=== PATIENT | female | born 1955 | race Caucasian/White ===

== ENCOUNTER 2016-09-16 15:32 | Emergency (ER) | payer BC ==
[2015-06-06 15:10] VITALS: BMI 29.0
[~2016-09-16 15:32] MED LIST: AMBIEN10 MG PO; ATIVAN0.5 MG PO; BYDUREON SQ; COUMADIN5 MG PO; COUMADIN6 MG PO; GLIPIZIDE10 MG PO; METOPROLOL TART50 MG PO; PRINIVIL20 MG PO
[2016-09-16 16:25] LABS: BASOPHILS 0.6 % (0.0-2.0); EOSINOPHILS 2.2 % (0-7); HEMATOCRIT 40.7 % (36.0-48.0); HEMOGLOBIN 14.3 g/dL (12-16); IMMATURE GRANULOCYTES 0.4 % (0-5); LYMPHOCYTES 39.9 % (15-50); MCH 31.2 pg (26.0-34.0); MCHC 35.1 g/dL (31.0-37.0); MCV 88.7 fL (80.0-100.0); MEAN PLATELET VOLUME 9.7 fL (7.4-10.4); MONOCYTES 7.8 % (2-11); NEUTROPHILS 49.1 % (40-80); PLATELET COUNT 172 10x3/uL (130-400); RBC 4.59 10x6/uL (4.00-5.40); RDW 11.9 % (11.5-14.5); WBC 5.4 10x3/uL (4.8-10.8)
[2016-09-16 17:00] LABS: ALBUMIN 3.4 g/dL (3.4-5.0); ALKALINE PHOSPHATASE 76 U/L (46-116); ALT (SGPT) 40 U/L (10-68); BILIRUBIN - TOTAL 0.35 mg/dL (0.2-1.3); CALCIUM 8.3 mg/dL (8.5-10.1); CARBON DIOXIDE 21.2 mmol/L (21.0-32.0); CHLORIDE - SERUM 105 mmol/L (98-107); CREATINE KINASE 65 UL (21-215); CREATININE - SERUM 0.9 mg/dL (0.6-1.3); POTASSIUM - SERUM 3.9 mmol/L (3.5-5.1); PROTEIN - SERUM 6.2 g/dL (6.4-8.2); SODIUM 141 mmol/L (136-145); T4 THYROXIN - FREE 1.03 ng/dL (0.76-1.46); UREA NITROGEN 18 mg/dL (7-18); eGFR NON AFRICAN AMERICAN 68 mL/min (90-120)
[2016-09-16 17:06] LABS: CALC OSMOLALITY 300 mosm/kg (275-300); TROPONIN-I < 0.017 ng/mL (0.000-0.060)
[2016-09-16 17:08] LABS: GLUCOSE 424 mg/dL (74-106)
== END 2016-09-16 19:39 | disposition home or self-care (01) ==
LOC: D.ER 15:32
PROVIDERS: Emergency Medicine
DX: I47.1 Supraventricular tachycardia (principal); R73.9 Hyperglycemia, unspecified

== ENCOUNTER → 2016-10-17 16:23 | Outpatient (CLI) | payer BC ==
[2015-06-06 15:10] VITALS: BMI 29.0
== END | disposition home or self-care (01) ==
LOC: D.MAMMO 09-18 15:00
DX: Z12.31 Encounter for screening mammogram for malignant neoplasm of breast (principal)

== ENCOUNTER 2017-06-15 07:29 | Emergency (ER) | payer BC ==
[2015-06-06 15:10] VITALS: BMI 29.0
[2017-06-15 08:19] LABS: BASOPHILS 0.7 % (0-2); EOSINOPHILS 3.2 % (0-7); HEMOGLOBIN 14.4 g/dL (12-16); IMMATURE GRANULOCYTES 0.2 % (0-5); LYMPHOCYTES 36.8 % (15-50); MCH 30.3 pg (26.0-34.0); MCHC 34.3 g/dL (31.0-37.0); MCV 88.2 fL (80.0-100.0); MEAN PLATELET VOLUME 9.8 fL (7.4-10.4); MONOCYTES 6.2 % (2-11); NEUTROPHILS 52.9 % (40-80); PLATELET COUNT 192 10x3/uL (130-400); RBC 4.76 10x6/uL (4.00-5.40); RDW 11.9 % (11.5-14.5); WBC 4.4 10x3/uL (4.8-10.8)
[2017-06-15 08:31] LABS: ALBUMIN 3.4 g/dL (3.4-5.0); ALKALINE PHOSPHATASE 57 U/L (46-116); ALT (SGPT) 37 U/L (10-68); CALC OSMOLALITY 294 mosm/kg (275-300); CALCIUM 8.7 mg/dL (8.5-10.1); CARBON DIOXIDE 21.6 mmol/L (21.0-32.0); CHLORIDE - SERUM 107 mmol/L (98-107); CREATININE - SERUM 0.9 mg/dL (0.6-1.3); POTASSIUM - SERUM 3.4 mmol/L (3.5-5.1); PROTEIN - SERUM 6.5 g/dL (6.4-8.2); SODIUM 142 mmol/L (136-145); UREA NITROGEN 13 mg/dL (7-18); eGFR NON AFRICAN AMERICAN 68 mL/min (90-120)
[2017-06-15 08:33] LABS: TROPONIN-I < 0.017 ng/mL (0.000-0.060)
[2017-06-15 08:39] LABS: GLUCOSE 321 mg/dL (74-106)
== END 2017-06-15 09:10 | disposition home or self-care (01) ==
LOC: D.ER 07:29
PROVIDERS: Emergency Medicine
DX: I47.1 Supraventricular tachycardia (principal)

== ENCOUNTER 2017-11-28 12:44 | Emergency (ER) | payer BC ==
[2015-06-06 15:10] VITALS: BMI 29.0
[2017-11-28 13:55] LABS: APTT 52.7 SECONDS (22.8-39.4); INR 3.35 (0.85-1.17); PROTIME 33.2 SECONDS (11.6-15.0)
== END 2017-11-28 14:34 | disposition home or self-care (01) ==
LOC: D.ER 12:44
PROVIDERS: Emergency Medicine
DX: S80.02XA Contusion of left knee, initial encounter (principal); W19.XXXA Unspecified fall, initial encounter; Y93.89 Activity, other specified; Y92.89 Other specified places as the place of occurrence of the external cause

== ENCOUNTER → 2017-12-09 10:09 | Outpatient (CLI) | payer BC ==
[2015-06-06 15:10] VITALS: BMI 29.0
== END | disposition home or self-care (01) ==
LOC: D.MRI 09:30
DX: M25.562 Pain in left knee (principal)

== ENCOUNTER → 2017-12-29 13:29 | Outpatient (CLI) | payer BC ==
[2015-06-06 15:10] VITALS: BMI 29.0
== END | disposition home or self-care (01) ==
LOC: D.US 13:29
DX: M79.605 Pain in left leg (principal); R22.42 Localized swelling, mass and lump, left lower limb

== ENCOUNTER 2018-09-19 02:37 | Emergency (ER) | payer BC ==
[~2018-09-19] VITALS: Ht 170.2 cm; Wt 81.6 kg
[2018-09-19 02:43] VITALS: Ht 170.2 cm; Wt 81.6 kg
[2018-09-19] MEDS ORDERED: TRULICITY1.5 MG/0.5 SC (02:45)
[2018-09-19 03:22] LABS: BASOPHILS 0.6 % (0-2); HEMATOCRIT 41.6 % (36.0-48.0); HEMOGLOBIN 14.4 g/dL (12-16); IMMATURE GRANULOCYTES 0.2 % (0-5); LYMPHOCYTES 48.3 % (15-50); MCH 29.9 pg (26.0-34.0); MCHC 34.6 g/dL (31.0-37.0); MCV 86.5 fL (80.0-100.0); MEAN PLATELET VOLUME 9.8 fL (7.4-10.4); MONOCYTES 6.9 % (2-11); PLATELET COUNT 184 10x3/uL (130-400); RBC 4.81 10x6/uL (4.00-5.40); RDW 12.2 % (11.5-14.5); WBC 4.9 10x3/uL (4.8-10.8)
[2018-09-19 03:30] LABS: KETONE - SERUM NEGATIVE (NEGATIVE)
[2018-09-19 03:40] LABS: ALBUMIN 3.8 g/dL (3.4-5.0); ALKALINE PHOSPHATASE 64 U/L (46-116); ALT (SGPT) 30 U/L (10-68); CALC OSMOLALITY 295 mosm/kg (275-300); CALCIUM 9.3 mg/dL (8.5-10.1); CARBON DIOXIDE 25.4 mmol/L (21.0-32.0); CHLORIDE - SERUM 105 mmol/L (98-107); CREATININE - SERUM 0.8 mg/dL (0.6-1.3); GLUCOSE 315 mg/dL (74-106); PROTEIN - SERUM 7.3 g/dL (6.4-8.2); SODIUM 141 mmol/L (136-145); UREA NITROGEN 20 mg/dL (7-18); eGFR NON AFRICAN AMERICAN 77 mL/min (90-120)
[2018-09-19 03:43] LABS: CREATINE KINASE 73 UL (21-215)
[2018-09-19 03:50] LABS: TROPONIN-I < 0.017 ng/mL (0.000-0.060)
[2018-09-19] MEDS ORDERED: ANTIVERT12.5 MG PO (04:32)
[2018-09-19] MEDS ORDERED: ZOFRAN ODT4 MG/UDTAB PO (04:33)
[2018-09-19 05:06] VITALS: BP 126/68
== END 2018-09-19 05:07 | disposition home or self-care (01) ==
LOC: D.ER 02:37
PROVIDERS: Emergency Medicine
DX: R42 Dizziness and giddiness (principal); R00.2 Palpitations

== ENCOUNTER → 2018-10-05 06:33 | Outpatient (CLI) | payer BC ==
[2018-09-19 02:43] VITALS: BMI 29.0
[~2018-10-05 06:33] MED LIST changes: +ANTIVERT12.5 MG PO; +TRULICITY1.5 MG/0.5 SC; +ZOFRAN ODT4 MG/UDTAB PO
[2018-10-05 07:19] LABS: BASOPHILS 0.8 % (0-2); EOSINOPHILS 2.5 % (0-7); HEMATOCRIT 41.4 % (36.0-48.0); HEMOGLOBIN 14.4 g/dL (12-16); IMMATURE GRANULOCYTES 0.2 % (0-5); LYMPHOCYTES 47.3 % (15-50); MCH 30.1 pg (26.0-34.0); MCHC 34.8 g/dL (31.0-37.0); MCV 86.4 fL (80.0-100.0); MEAN PLATELET VOLUME 9.9 fL (7.4-10.4); MONOCYTES 5.9 % (2-11); NEUTROPHILS 43.3 % (40-80); PLATELET COUNT 210 10x3/uL (130-400); RBC 4.79 10x6/uL (4.00-5.40); WBC 5.1 10x3/uL (4.8-10.8)
[2018-10-05 07:53] LABS: INR 1.65 (0.85-1.17); PROTIME 18.9 SECONDS (11.6-15.0)
[2018-10-05 08:11] LABS: ALBUMIN 3.7 g/dL (3.4-5.0); ALKALINE PHOSPHATASE 55 U/L (46-116); ALT (SGPT) 30 U/L (10-68); BILIRUBIN - TOTAL 0.47 mg/dL (0.2-1.3); CALCIUM 9.1 mg/dL (8.5-10.1); CARBON DIOXIDE 23.5 mmol/L (21.0-32.0); CHOL - HDL RATIO 3.9 ratio (2.3-4.1); CHOLESTEROL, TOTAL 143 mg/dL (0-200); CREATININE - SERUM 0.8 mg/dL (0.6-1.3); HDL CHOLESTEROL 37 mg/dL (32-96); LDL CHOLESTEROL 86 mg/dL (0-100); LDL-HDL RATIO 2.3 ratio (1.5-3.5); PROTEIN - SERUM 6.9 g/dL (6.4-8.2); TRIGLYCERIDE 103 mg/dL (30-200); UREA NITROGEN 19 mg/dL (7-18); eGFR NON AFRICAN AMERICAN 77 mL/min (90-120)
[2018-10-05 08:20] LABS: GLUCOSE 267 mg/dL (74-106)
[2018-10-05 08:41] LABS: CALC OSMOLALITY 284 mosm/kg (275-300); CHLORIDE - SERUM 104 mmol/L (98-107); POTASSIUM - SERUM 3.8 mmol/L (3.5-5.1); SODIUM 137 mmol/L (136-145)
[2018-10-06 10:20] LABS: CREATININE - URINE 62.4 mg/dL (Not Estab.); MICROALBUMIN - URINE 4.7 ug/mL (Not Estab.)
[2018-10-13 14:22] LABS: MICROALB/CREAT RATIO 7.5 (0.0-30.0)
== END | disposition home or self-care (01) ==
LOC: D.LABREF 06:33
PROVIDERS: ATTEND Emergency Medicine
DX: E11.65 Type 2 diabetes mellitus with hyperglycemia (principal); I10 Essential (primary) hypertension; E78.2 Mixed hyperlipidemia; D68.51 Activated protein C resistance

== ENCOUNTER → 2018-10-22 09:59 | Outpatient (CLI) | payer BC | END | disposition home or self-care (01) | LOC: D.MAMMO 09:59 | DX: Z12.31 Encounter for screening mammogram for malignant neoplasm of breast (principal) ==

== ENCOUNTER → 2018-11-02 15:07 | Outpatient (CLI) | payer BC ==
[2018-09-19 02:43] VITALS: BMI 29.0
[2018-11-02 15:44] LABS: INR 1.22 (0.85-1.17); PROTIME 14.9 SECONDS (11.6-15.0)
== END | disposition home or self-care (01) ==
LOC: D.LABREF 15:07
PROVIDERS: ATTEND Emergency Medicine
DX: E11.9 Type 2 diabetes mellitus without complications (principal)

== ENCOUNTER → 2018-12-17 08:43 | Outpatient (CLI) | payer BC ==
[2018-09-19 02:43] VITALS: BMI 29.0
[2018-12-17 10:13] LABS: INR 1.1 (0.85-1.17); PROTIME 13.7 SECONDS (11.6-15.0)
== END | disposition home or self-care (01) ==
LOC: D.LABREF 08:43
PROVIDERS: ATTEND Emergency Medicine
DX: D68.51 Activated protein C resistance (principal)

== ENCOUNTER → 2019-01-19 08:05 | Outpatient (CLI) | payer BC ==
[2018-09-19 02:43] VITALS: BMI 29.0
[2019-01-19 09:08] LABS: INR 1.01 (0.85-1.17); PROTIME 12.8 SECONDS (11.6-15.0)
== END | disposition home or self-care (01) ==
LOC: D.LABREF 08:05
PROVIDERS: ATTEND Emergency Medicine
DX: E11.65 Type 2 diabetes mellitus with hyperglycemia (principal)

== ENCOUNTER 2019-07-16 13:02 | Inpatient (IN) | payer BC ==
[~2019-07-16] VITALS: Ht 170.2 cm; Wt 86.3 kg
[2019-07-16 14:54] LABS: BASOPHILS 0.5 % (0-2); EOSINOPHILS 2.1 % (0-7); HEMATOCRIT 41.3 % (36.0-48.0); HEMOGLOBIN 14.5 g/dL (12-16); IMMATURE GRANULOCYTES 0.2 % (0-5); LYMPHOCYTES 31.8 % (15-50); MCH 29.7 pg (26.0-34.0); MCHC 35.1 g/dL (31.0-37.0); MCV 84.6 fL (80.0-100.0); MEAN PLATELET VOLUME 9.7 fL (7.4-10.4); MONOCYTES 6.4 % (2-11); PLATELET COUNT 187 10x3/uL (130-400); RBC 4.88 10x6/uL (4.00-5.40); RDW 11.9 % (11.5-14.5); WBC 6.1 10x3/uL (4.8-10.8)
[2019-07-16 15:04] LABS: INR 0.96 (0.85-1.17); PROTIME 12.8 SECONDS (11.6-15.0)
[2019-07-16 15:05] LABS: CALC OSMOLALITY 289 mosm/kg (275-300); CALCIUM 8.7 mg/dL (8.5-10.1); CARBON DIOXIDE 26.5 mmol/L (21.0-32.0); CHLORIDE - SERUM 100 mmol/L (98-107); CREATININE - SERUM 0.7 mg/dL (0.6-1.3); POTASSIUM - SERUM 3.9 mmol/L (3.5-5.1); SODIUM 136 mmol/L (136-145); UREA NITROGEN 19 mg/dL (7-18); eGFR NON AFRICAN AMERICAN 90 mL/min (90-120)
[2019-07-16 15:07] LABS: GLUCOSE 381 mg/dL (74-106)
[2019-07-16 15:12] LABS: ALBUMIN 3.4 g/dL (3.4-5.0); ALKALINE PHOSPHATASE 71 U/L (46-116); ALT (SGPT) 30 U/L (10-68); BILIRUBIN - TOTAL 0.31 mg/dL (0.2-1.3); MAGNESIUM - SERUM 1.8 mg/dL (1.8-2.4); PROTEIN - SERUM 6.4 g/dL (6.4-8.2)
--- NOTE | 2019-07-16 16:00 | NUR ---
ADMITTED TO ROOM ALERT AND ORIENTIATED, REPORTS FELL AT HOME YESTERDAY AND HURT BACK, SEE ASSESSMENT, ORIENTIATED TO ROOM, CALL LIGHT IN REACH
[2019-07-16 20:00] VITALS: BP 134/59
[2019-07-17] VITALS (7 sets, daily range): BP systolic 100–156; BP diastolic 55–68; Ht 170.2 cm; Wt 86.3 kg
[2019-07-17 05:39] LABS: BASOPHILS 0.1 % (0-2); EOSINOPHILS 0.1 % (0-7); HEMATOCRIT 43.4 % (36.0-48.0); IMMATURE GRANULOCYTES 0.3 % (0-5); MCH 29.6 pg (26.0-34.0); MCHC 34.6 g/dL (31.0-37.0); MCV 85.8 fL (80.0-100.0); MEAN PLATELET VOLUME 9.7 fL (7.4-10.4); MONOCYTES 1.5 % (2-11); PLATELET COUNT 201 10x3/uL (130-400); RBC 5.06 10x6/uL (4.00-5.40); RDW 12.1 % (11.5-14.5); WBC 7.3 10x3/uL (4.8-10.8)
[2019-07-17 06:08] LABS: CALCIUM 9.2 mg/dL (8.5-10.1); CARBON DIOXIDE 25.6 mmol/L (21.0-32.0); CHLORIDE - SERUM 103 mmol/L (98-107); CREATININE - SERUM 0.8 mg/dL (0.6-1.3); SODIUM 138 mmol/L (136-145); UREA NITROGEN 21 mg/dL (7-18); eGFR NON AFRICAN AMERICAN 77 mL/min (90-120)
[2019-07-17 06:09] LABS: CALC OSMOLALITY 290 mosm/kg (275-300); GLUCOSE 320 mg/dL (74-106); POTASSIUM - SERUM 4.5 mmol/L (3.5-5.1)
--- NOTE | 2019-07-17 08:15 | NUR ---
PT LYING SEMI FOWLERS IN BED. RR EVEN AND UNLABORED. PT HAS A L WRIST PIV THAT IS SL. BED LOCKED AND IN LOWEST POSITION, CALL LIGHT WITIN REACH. WILL CTM
--- NOTE | 2019-07-17 14:26 | NUR ---
I have reviewed this patient and I concur with the Shift Assessment completed by the Licensed Practical Nurse today this shift.
[2019-07-17 16:24] LABS: ERYTHROCYTE SEDIMENTATION RATE 5 mm/hr (0-30)
--- NOTE | 2019-07-17 20:00 | NUR ---
ALERT RESTING QUITELY IN BED, REPORTS PAIN WITH MOVEMENT, DENIES NEEDS AT THIS TIME, SEE SHIFT ASSESSNMENT, CALL LIGHT IN REACH
[2019-07-18] VITALS: BP 152/65
[2019-07-18 04:00] VITALS: BP 116/45
[2019-07-18 05:22] LABS: BASOPHILS 0.1 % (0-2); EOSINOPHILS 0 % (0-7); HEMATOCRIT 42.7 % (36.0-48.0); IMMATURE GRANULOCYTES 0.6 % (0-5); LYMPHOCYTES 10.1 % (15-50); MCH 30.2 pg (26.0-34.0); MCHC 35.1 g/dL (31.0-37.0); MCV 86.1 fL (80.0-100.0); MEAN PLATELET VOLUME 10.1 fL (7.4-10.4); MONOCYTES 3.9 % (2-11); NEUTROPHILS 85.3 % (40-80); PLATELET COUNT 219 10x3/uL (130-400); RBC 4.96 10x6/uL (4.00-5.40); RDW 12.1 % (11.5-14.5)
[2019-07-18 05:31] LABS: WBC 12.1 10x3/uL (4.8-10.8)
[2019-07-18 05:39] LABS: CALC OSMOLALITY 291 mosm/kg (275-300); CALCIUM 9.5 mg/dL (8.5-10.1); CARBON DIOXIDE 25.9 mmol/L (21.0-32.0); CHLORIDE - SERUM 102 mmol/L (98-107); CREATININE - SERUM 0.6 mg/dL (0.6-1.3); GLUCOSE 310 mg/dL (74-106); POTASSIUM - SERUM 4.1 mmol/L (3.5-5.1); SODIUM 138 mmol/L (136-145); UREA NITROGEN 23 mg/dL (7-18); eGFR NON AFRICAN AMERICAN > 90 mL/min (90-120)
--- NOTE | 2019-07-18 07:52 | NUR ---
LEFT UNIT FOR MRI VIA WHEELCHAIR. PAIN MEDS PRIOR TO LEAVING UNIT
[2019-07-18 07:58] VITALS: BP 151/71
--- NOTE | 2019-07-18 08:00 | NUR ---
ASSESSMENT PER FLOW SHEET. PT IS WITHOUT NEEDS.CALL LIGHT IN REACH.
--- NOTE | 2019-07-18 09:18 | NUR ---
BACK FROM MRI.
--- NOTE | 2019-07-18 14:00 | MORECARE ---
CASE MANAGEMENT DISCHARGE SUMMARY PATIENT: VENU VILLATORO UNIT: [id number] ADM DATE: 07/16/19 AGE: 63 : 59 SEX: F ROOM/BED: D.[facility] AUTHOR: TIFFANY PAUL PHYSICIAN: REFERRING PHYSICIAN: MISSY HECK MD DATE OF SERVICE: 07/18/19 Discharge Plan Patient Name: VENU VILLATORO Facility: [facility]:[place] : 1955 Planned Disposition: Home Anticipated Discharge Date: Discharge Date: Expected LOS: Initial Reviewer: [email or web address] Initial Review Date: 07/18/2019 Generated: 07/18/19 2:59 pm Patient Name: VENU VILLATORO Page [phone] at 1400 All edits/amendments must be made on the electronic document DICTATION DATE: 07/18/19 1359 APNS: DWIGHT 07/18/19 135Suresh RPT#: [id number] DC DATE: STATUS: ADM IN [facility] [address] [place] [address] END OF REPORT
--- NOTE | 2019-07-18 14:06 | MORECARE ---
CASE MANAGEMENT DISCHARGE SUMMARY PATIENT: VENU VILLATORO UNIT: [id number] ADM DATE: 07/18/19 AGE: 63 : 59 SEX: F ROOM/BED: D.2231 AUTHOR: HUMBERTO,DOC PHYSICIAN: REFERRING PHYSICIAN: MISSY HECK MD DATE OF SERVICE: 07/18/19 Discharge Plan Patient Name: VENU VILLATORO Facility: [facility]:[place] : 1955 Planned Disposition: Home Anticipated Discharge Date: Discharge Date: Expected LOS: Initial Reviewer: [email or web address] Initial Review Date: 07/18/2019 Generated: 07/18/19 3:06 pm DCP- Discharge Planning Updated by [email or web address]: Carmelina Hutchison on 07/18/19 1:[address] Patient Name: VENU VILLATORO Admission Status: ER Accout number: [id number] Admission Date: 07-16-2019 : 1955 Admission Diagnosis: Attending: MISSY HECK Current LOS: 2 Anticipated DC Date: Planned Disposition: Home Primary Insurance: B[employer]NLIFE Discharge Planning Comments: CM met with patient to complete initial dc planning assessment. CM educated patient on the CM role and verbal consent given by patient to complete assessment. Patient lives at home with her adult son. States her son works at night, so usually she is alone. At discharge patient plans to return and feels this is a safe discharge. CM discussed availability of home health, rehab services, and medical equipment. Patient denied known discharge needs at this time. States her home is too small for a walker, so she declines a walker. CM will continue to follow and will assist as needed with dc plans/needs. Malted Milk Supervisor: Carmelina Hutchison DCPIA - Discharge Planning Initial Assessment Updated by [email or web address]: Carmelina Hutchison on 07/18/19 1:59 pm * Is the patient Alert and Oriented? Yes * How many steps to enter\exit or inside your home? 6/0 * PCP Dr. Spencer * Pharmacy [facility] * Preadmission Environment Home with Family * ADLs Independent * Equipment None * List name and contact numbers for known caregivers / representatives who currently or will assist patient after discharge: Vin Byrd SO - [phone] * Verbal permission to speak to the caregivers and representatives has been obtained from the patient. Yes * Community resources currently utilized None * Additional services required to return to the preadmission environment? No * Can the patient safely return to the preadmission environment? Yes * Has this patient been hospitalized within the prior 30 days at any hospital? No Last DP export: 07/18/19 1:00 p Patient Name: VENU VILLATORO Page [phone] at 1406 All edits/amendments must be made on the electronic document DICTATION DATE: 07/18/191405 PHYSICAL PLANT EMPLOYEE: DWIGHT 07/18/191405 RPT#: [id number] DC DATE: STATUS: ADM IN [facility] [address] [place] [address] END OF REPORT
[2019-07-18 14:17] LABS: INR 0.97 (0.85-1.17); PROTIME 12.8 SECONDS (11.6-15.0)
[2019-07-18 17:33] VITALS: BP 114/61
--- NOTE | 2019-07-18 20:55 | NUR ---
LYING IN BED. ALERT AND ORIENTED X4. RESP EVEN AND NONLABORED. BRUISE NOTED TO RT KNEE. C/O PAIN IN BACK 5 ON PAIN SCALE. SALINE LOCK NOTED TO LT FOREARM. AMB WITH UNSTEADY GAIT WITH STANDBY ASSIST. NO DISTRESS. CL IN REACH.
[2019-07-18 21:11] VITALS: BP 133/63
--- NOTE | 2019-07-18 23:50 | NUR ---
MEDICATED WITH MORPHINE FOR C/O PAIN IN BACK. CL IN REACH.
[2019-07-19 01:24] VITALS: BP 114/54
--- NOTE | 2019-07-19 04:14 | NUR ---
HAS RESTED WELL TONIGHT. STATES, "I FEEL BETTER BECAUSE I ACTUALLY GOT SOME SLEEP TONIGHT." CL IN REACH.
[2019-07-19 04:53] LABS: BASOPHILS 0.1 % (0-2); EOSINOPHILS 0 % (0-7); HEMATOCRIT 41.2 % (36.0-48.0); HEMOGLOBIN 14.2 g/dL (12-16); IMMATURE GRANULOCYTES 0.5 % (0-5); LYMPHOCYTES 10.7 % (15-50); MCH 29.7 pg (26.0-34.0); MCHC 34.5 g/dL (31.0-37.0); MCV 86.2 fL (80.0-100.0); MEAN PLATELET VOLUME 10.6 fL (7.4-10.4); MONOCYTES 4.1 % (2-11); NEUTROPHILS 84.6 % (40-80); PLATELET COUNT 223 10x3/uL (130-400); RBC 4.78 10x6/uL (4.00-5.40); RDW 12.2 % (11.5-14.5); WBC 11.1 10x3/uL (4.8-10.8)
[2019-07-19 04:56] VITALS: BP 113/50
[2019-07-19 04:58] LABS: INR 1.01 (0.85-1.17); PROTIME 13.3 SECONDS (11.6-15.0)
[2019-07-19 05:12] LABS: CALC OSMOLALITY 286 mosm/kg (275-300); CALCIUM 8.8 mg/dL (8.5-10.1); CARBON DIOXIDE 28.7 mmol/L (21.0-32.0); CHLORIDE - SERUM 104 mmol/L (98-107); CREATININE - SERUM 0.7 mg/dL (0.6-1.3); MAGNESIUM - SERUM 2.2 mg/dL (1.8-2.4); POTASSIUM - SERUM 3.8 mmol/L (3.5-5.1); SODIUM 138 mmol/L (136-145); UREA NITROGEN 23 mg/dL (7-18); eGFR NON AFRICAN AMERICAN 90 mL/min (90-120)
[2019-07-19 05:21] LABS: GLUCOSE 225 mg/dL (74-106)
--- NOTE | 2019-07-19 08:00 | NUR ---
ASSESSMENT PER FLOW SHEET. PT IS WITHOUT DISTRESS. MONITOR FOR NEEDS
[2019-07-19 09:16] VITALS: BP 124/67
--- NOTE | 2019-07-19 12:28 | NUR ---
OT NOTE: PT DOING MUCH BETTER TODAY. REPORTS PAIN IS ABOUT THE SAME BUT VERY MOTIVATED TO GET BACK HOME. BED MOB WITH SPV; ABLE TO EPI PANTS WHILE ON EOB WITH MIN ASSIST; CLOTHING MGMT IN STANDING WITH MIN ASSIST; AMB IN ROOM WITH WALKER AND MIN ASSIST. AMB INTO HALLWAY X 70 FT FOR STRENGTHENING. TRANSFERS BACK TO BED WITH SPV AND EXT TIME. GROOMING TASKS WITH SET UP. LARISSA OROPEZA, Sherry TR/L [phone]
[2019-07-19 13:29] VITALS: BP 131/65
--- NOTE | 2019-07-19 14:29 | NUR ---
REPORT TO REHAB,SPOKE WITH PHILLIP.
--- NOTE | 2019-07-19 17:01 | NUR ---
REMAINS WITHOUT NEEDS,WITHOUT CHANGE.CONT PLAN OF CARE
[2019-07-19 17:55] VITALS: BP 159/70
[2019-07-19 21:18] VITALS: BP 134/53
[2019-07-20 01:14] VITALS: BP 131/53
--- NOTE | 2019-07-20 03:47 | NUR ---
PT RESTING IN BED. EYES CLOSED. NO SIGNS OF DISTRESS. BREATHING EVEN AND UNLABORED. IV SITE LT FA DRESSING CLEAN DRY AND INTACT. NO SIGNS OF INFECTION OR INFULTRATION. LUNG SOUNDS CLEAR. BOWEL SOUNDS ACTIVE. BACK BRAC AT BEDSIDE. SKIN CLEAN DRY AND INTACT. NO LOWER LEG SWELLING PRESENT. WILL CONTINUE PLAN OF CARE. CALL LIGHT IN REACH. BED LOWERED AND LOCKED. BED RAILS UPX2.
--- NOTE | 2019-07-20 04:02 | NUR ---
I have reviewed this patient and I concur with the Shift Assessment completed by the Licensed Practical Nurse today this shift.
[2019-07-20 06:06] VITALS: BP 127/55
[2019-07-20 06:15] LABS: BASOPHILS 0 % (0-2); EOSINOPHILS 0.1 % (0-7); HEMATOCRIT 42.9 % (36.0-48.0); HEMOGLOBIN 14.8 g/dL (12-16); IMMATURE GRANULOCYTES 0.5 % (0-5); LYMPHOCYTES 21.1 % (15-50); MCH 30.1 pg (26.0-34.0); MCHC 34.5 g/dL (31.0-37.0); MCV 87.4 fL (80.0-100.0); MONOCYTES 10.4 % (2-11); NEUTROPHILS 67.9 % (40-80); PLATELET COUNT 194 10x3/uL (130-400); RBC 4.91 10x6/uL (4.00-5.40); RDW 12.4 % (11.5-14.5); WBC 8.8 10x3/uL (4.8-10.8)
[2019-07-20 06:31] LABS: INR 1.08 (0.85-1.17)
[2019-07-20 06:37] LABS: CALC OSMOLALITY 284 mosm/kg (275-300); CALCIUM 8.6 mg/dL (8.5-10.1); CARBON DIOXIDE 28.1 mmol/L (21.0-32.0); CHLORIDE - SERUM 105 mmol/L (98-107); CREATININE - SERUM 0.6 mg/dL (0.6-1.3); MAGNESIUM - SERUM 2.3 mg/dL (1.8-2.4); SODIUM 140 mmol/L (136-145); UREA NITROGEN 26 mg/dL (7-18); eGFR NON AFRICAN AMERICAN > 90 mL/min (90-120)
[2019-07-20 06:43] LABS: GLUCOSE 125 mg/dL (74-106)
--- NOTE | 2019-07-20 07:10 | NUR ---
PT RESTING IN BED. NO SIGNS OF DISTRESS. IV TO LEFT FORARM PATENT NO REDNESS OR TENDERNESS. BACK BRACE TO BE ON WHEN UP. COMPLAINS OF PAIN. MEDICATION GIVEN. DENIES ANY FURTHER NEED AT THIS TIME. CALL LIGHT IN REACH. BED LOW POSITION. NO FAMILY AT BEDSIDE AT THIS TIME.
[2019-07-20 08:55] VITALS: BP 146/70
[2019-07-20 12:55] VITALS: BP 127/69
--- NOTE | 2019-07-20 16:29 | NUR ---
OT NOTE: PT COMPLETED BED MOB WITH SBA. PT EDUCATED ON EPI BACK BRACE. PT REQUIRED MIN A TO EPI BACK BRACE. PT COMPLETED ADL MOB WITH RW REQUIRED CGA/SBA. PT COMPLETED BUE AROM EXS. [phone] THANK YOU,YURI ARCHULETA
--- NOTE | 2019-07-20 16:50 | NUR ---
OT NOTE: PT DOING BETTER; BED MOB WITH SPV; FUNCTIONAL TRANSFERS WITH SBA AND USE OF WALKER LARISSA OROPEZA OTR/L
[2019-07-20 17:33] VITALS: BP 152/73
--- NOTE | 2019-07-20 18:45 | NUR ---
I have reviewed this patient and I concur with the Shift Assessment completed by the Licensed Practical Nurse today this shift.
[2019-07-20 19:30] VITALS: BP 147/72
[2019-07-21 00:30] VITALS: BP 150/74
--- NOTE | 2019-07-21 00:41 | NUR ---
Alert and orented x4 able to voice needs and wants to staff. Remains on room air, IV to left FAfinger stick blood sugers everu 4 hours.with slidin scale. pain controled with norco. water and call light in reach. Up wit assist.
[2019-07-21 05:06] LABS: BASOPHILS 0 % (0-2); EOSINOPHILS 0.5 % (0-7); HEMATOCRIT 42.6 % (36.0-48.0); HEMOGLOBIN 14.5 g/dL (12-16); IMMATURE GRANULOCYTES 1.3 % (0-5); LYMPHOCYTES 29.8 % (15-50); MCH 29.6 pg (26.0-34.0); MCV 86.9 fL (80.0-100.0); MEAN PLATELET VOLUME 10.3 fL (7.4-10.4); MONOCYTES 6.6 % (2-11); NEUTROPHILS 61.8 % (40-80); PLATELET COUNT 210 10x3/uL (130-400); RDW 12.2 % (11.5-14.5)
[2019-07-21 05:16] LABS: WBC 6.4 10x3/uL (4.8-10.8)
[2019-07-21 05:17] LABS: CALC OSMOLALITY 284 mosm/kg (275-300); CALCIUM 8.5 mg/dL (8.5-10.1); CARBON DIOXIDE 27.6 mmol/L (21.0-32.0); CHLORIDE - SERUM 105 mmol/L (98-107); CREATININE - SERUM 0.6 mg/dL (0.6-1.3); MAGNESIUM - SERUM 2.2 mg/dL (1.8-2.4); SODIUM 139 mmol/L (136-145); UREA NITROGEN 21 mg/dL (7-18); eGFR NON AFRICAN AMERICAN > 90 mL/min (90-120)
[2019-07-21 05:19] LABS: INR 1.26 (0.85-1.17); PROTIME 15.7 SECONDS (11.6-15.0)
[2019-07-21 05:22] LABS: GLUCOSE 179 mg/dL (74-106)
[2019-07-21 05:26] VITALS: BP 140/69
--- NOTE | 2019-07-21 07:41 | NUR ---
REC'D IN BED AWAKE AND ALERT. RESP EVEN AND UNLABORED WITH NO DISTRESS NOTED. CAN EXPRESS NEEDS AND WANTS. NO C/O NOTED OR VOICED. ASSESSMENT COMPLETED. C/L IN REACH AT BEDSIDE.
[2019-07-21 08:45] VITALS: BP 167/82
[2019-07-21 12:26] VITALS: BP 136/79
[2019-07-21 17:02] VITALS: BP 158/75
--- NOTE | 2019-07-21 18:21 | NUR ---
OT NOTE: PT STATED SHE IS DIZZY. NURSING AWARE. PT REQUIRED CGA WITH ADL MOB . PT COMPLETED HYGIENE TASKS AT SINK LEVEL WITH SBA.PT COMPLETED TOILETING WITH SBA. PT ABLE TO EPI/DOFF BACK BRACE. [phone] THANK YOU,YURI ARCHULETA
[2019-07-21 19:30] VITALS: BP 145/68
[2019-07-22 00:30] VITALS: BP 122/57
--- NOTE | 2019-07-22 01:21 | NUR ---
ASSESSED AT THE BEGINNING OF THE SHIFT. PT IS ALERT AND ORIENTED, ABLE TO VERBALIZE NEEDS. THERE IS A TLSO BRACE IN THE ROOM FOR HER TO USE IF SHE GETS OUT OF BED. ACCU-CHECKS ARE BEING TAKEN EVERY 4 HRS AND SHE HAS BEEN COVERED EACH TIME. SHE IS ABLE TO GET UP TO THE BATHROOM WITH STAND BY ASSIST.
[2019-07-22 04:30] VITALS: BP 128/60
[2019-07-22 06:33] LABS: BASOPHILS 0 % (0-2); EOSINOPHILS 1.9 % (0-7); HEMATOCRIT 44.1 % (36.0-48.0); IMMATURE GRANULOCYTES 1.3 % (0-5); LYMPHOCYTES 26.5 % (15-50); MCH 29.7 pg (26.0-34.0); MCV 87.3 fL (80.0-100.0); MEAN PLATELET VOLUME 10.1 fL (7.4-10.4); MONOCYTES 9.4 % (2-11); NEUTROPHILS 60.9 % (40-80); PLATELET COUNT 196 10x3/uL (130-400); RBC 5.05 10x6/uL (4.00-5.40); RDW 12.4 % (11.5-14.5); WBC 6.8 10x3/uL (4.8-10.8)
[2019-07-22 06:53] LABS: CALC OSMOLALITY 287 mosm/kg (275-300); CALCIUM 8.7 mg/dL (8.5-10.1); CARBON DIOXIDE 25.5 mmol/L (21.0-32.0); CHLORIDE - SERUM 104 mmol/L (98-107); CREATININE - SERUM 0.7 mg/dL (0.6-1.3); GLUCOSE 213 mg/dL (74-106); MAGNESIUM - SERUM 1.9 mg/dL (1.8-2.4); POTASSIUM - SERUM 4.1 mmol/L (3.5-5.1); SODIUM 139 mmol/L (136-145); UREA NITROGEN 23 mg/dL (7-18); eGFR NON AFRICAN AMERICAN 90 mL/min (90-120)
[2019-07-22 06:54] LABS: INR 1.48 (0.85-1.17); PROTIME 17.8 SECONDS (11.6-15.0)
[2019-07-22 08:53] VITALS: BP 158/80
[2019-07-22] MEDS ORDERED: MEDROL DOSE PACK4 MG PO (11:12)
[2019-07-22] MEDS ORDERED: NORCO-7.5 PO ×3 (11:12→12:20)
[2019-07-22] MEDS ORDERED: ULTRAM50 MG PO (12:10)
--- NOTE | 2019-07-22 13:04 | NUR ---
DC HOME AT THIS TIME VOICE UNDERSTANDING OF DC INSTRCUCTION. IV DC WITH TIP INTACT. STABLE CONDITION UPON DEPARTURE.
--- NOTE | 2019-07-22 20:01 | NUR ---
OT NOTE: PT SITTING UPRIGHT IN CHAIR WITH BRACE ON. PT COMPLETED SIT TO STAND WITH SBA. PT COMPLETED DYNAMIC STANDING BALANCE AXS WITH GROOMING TASKS WITH SBA/CGA. PT COMPLETED BUE AROM EXS IN CHAIR. [phone] THANK YOU,YURI ARCHULETA
--- NOTE | 2019-07-25 08:49 | MORECARE ---
CASE MANAGEMENT DISCHARGE SUMMARY PATIENT: VENU VILLATORO UNIT: [id number] ADM DATE: 07/18/19 AGE: 63 : 59 SEX: F ROOM/BED: D.2231 AUTHOR: HUMBERTODOC PHYSICIAN: REFERRING PHYSICIAN: MISSY HECK MD DATE OF SERVICE: 07/25/19 Discharge Plan Patient Name: VENU VILLATORO Facility: [facility]:[place] : 1955 Planned Disposition: Home Anticipated Discharge Date: Discharge Date: 07/22/2019 Expected LOS: Initial Reviewer: [email or web address] Initial Review Date: 07/18/2019 Generated: 07/25/19 9:49 am DCP- Discharge Planning Updated by [email or web address]: Carmelina Hutchison on 07/18/19 1:[address] Patient Name: VENU VILLATORO Admission Status: ER Accout number: [id number] Admission Date: 07-16-2019 : 1955 Admission Diagnosis: Attending: MISSY HECK Current LOS: 2 Anticipated DC Date: Planned Disposition: Home Primary Insurance: BCTNLIFE Discharge Planning Comments: CM met with patient to complete initial dc planning assessment. CM educated patient on the CM role and verbal consent given by patient to complete assessment. Patient lives at home with her adult son. States her son works at night, so usually she is alone. At discharge patient plans to return and feels this is a safe discharge. CM discussed availability of home health, rehab services, and medical equipment. Patient denied known discharge needs at this time. States her home is too small for a walker, so she declines a walker. CM will continue to follow and will assist as needed with dc plans/needs. Waterworks Chief Engineer: Carmelina Hutchison DCPIA - Discharge Planning Initial Assessment Updated by [email or web address]: Carmelina Hutchison on 07/18/19 1:59 pm * Is the patient Alert and Oriented? Yes * How many steps to enter\exit or inside your home? 6/0 * PCP Dr. Spencer * [facility]acy [facility] * Preadmission Environment Home with Family * ADLs Independent * Equipment None * List name and contact numbers for known caregivers / representatives who currently or will assist patient after discharge: Vin Byrd - SO - [phone] * Verbal permission to speak to the caregivers and representatives has been obtained from the patient. Yes * Community resources currently utilized None * Additional services required to return to the preadmission environment? No * Can the patient safely return to the preadmission environment? Yes * Has this patient been hospitalized within the prior 30 days at any hospital? No Last DP export: 07/18/19 1:06 p Patient Name: VENU VILLATORO Page [id number] at 0849 All edits/amendments must be made on the electronic document DICTATION DATE: 07/25/19848 ELECTRONICS WARFARE TECHNICIAN: DWIGHT 07/25/1947 RPT#: [id number] DC DATE:07/22/19 STATUS: DIS IN [facility] [address] [place] [address] END OF REPORT
== END 2019-07-22 13:00 | disposition home or self-care (01) | DRG 551 ==
LOC: D.ER 13:02 → OBSVTIME 17:54 → D.MS 17:54
PROVIDERS: Family Medicine; ADMIT Internal Medicine Nephrology; ATTEND Internal Medicine Nephrology
DX: M51.24 Other intervertebral disc displacement, thoracic region (principal); G95.19 Other vascular myelopathies; W19.XXXA Unspecified fall, initial encounter; E11.65 Type 2 diabetes mellitus with hyperglycemia; I10 Essential (primary) hypertension

== ENCOUNTER → 2019-07-26 08:20 | Outpatient (CLI) | payer BC ==
[2019-07-17 01:10] VITALS: BMI 29.0
[~2019-07-26 08:20] MED LIST changes: +MEDROL DOSE PACK4 MG PO; +NORCO-7.5 PO; +ULTRAM50 MG PO
== END | disposition home or self-care (01) ==
LOC: D.LAB 08:20
PROVIDERS: ATTEND Emergency Medicine
DX: E11.65 Type 2 diabetes mellitus with hyperglycemia (principal)

== ENCOUNTER → 2019-08-31 09:17 | Outpatient (CLI) | payer BC ==
[2019-07-17 01:10] VITALS: BMI 29.0
[2019-08-31 09:58] LABS: INR 2.85 (0.85-1.17); PROTIME 29.5 SECONDS (11.6-15.0)
== END | disposition home or self-care (01) ==
LOC: D.LABREF 09:17 → D.LAB 09:17
PROVIDERS: ATTEND Emergency Medicine
DX: D68.51 Activated protein C resistance (principal)

== ENCOUNTER 2019-09-07 18:04 | Emergency (ER) | payer OTHER, BC ==
[~2019-09-07] VITALS: Ht 170.2 cm; Wt 81.8 kg
[2019-09-07 18:06] VITALS: Ht 170.2 cm; Wt 81.8 kg
[2019-09-07] MEDS ORDERED: BACLOFEN20 M1 PO (21:03)
[2019-09-07 21:29] VITALS: BP 142/68
== END 2019-09-07 21:31 | disposition home or self-care (01) ==
LOC: D.ER 18:04
DX: M79.10 Myalgia, unspecified site (principal); M62.838 Other muscle spasm; I10 Essential (primary) hypertension; I48.91 Unspecified atrial fibrillation; E11.9 Type 2 diabetes mellitus without complications; Z79.84 Long term (current) use of oral hypoglycemic drugs; V89.2XXA Person injured in unspecified motor-vehicle accident, traffic, initial encounter; Y93.9 Activity, unspecified; Y92.9 Unspecified place or not applicable

== ENCOUNTER 2020-12-20 07:29 | Emergency (ER) | payer BC ==
[~2020-12-20] VITALS: Ht 170.2 cm; Wt 79.5 kg
[~2020-12-20 07:29] MED LIST changes: +BACLOFEN20 M1 PO; +CLINDAMYCIN HC300 MG PO; +ERYTHROMYCIN OPT1 GM RIGHT EYE; +LANTUS INS100 UNITS/ SC; +POLYTRIM EYE DR10 ML RIGHT EYE
[2020-12-20 07:30] VITALS: Ht 170.2 cm; Wt 79.5 kg
[2020-12-20 07:59] LABS: CALC OSMOLALITY 288 mosm/kg (275-300); CALCIUM 9.3 mg/dL (8.5-10.1); CARBON DIOXIDE 20.2 mmol/L (21.0-32.0); CHLORIDE - SERUM 103 mmol/L (98-107); CREATININE - SERUM 0.7 mg/dL (0.6-1.3); GLUCOSE 322 mg/dL (74-106); POTASSIUM - SERUM 3.9 mmol/L (3.5-5.1); SODIUM 138 mmol/L (136-145); UREA NITROGEN 15 mg/dL (7-18); eGFR NON AFRICAN AMERICAN 90 mL/min (90-120)
[2020-12-20 08:07] LABS: BASOPHILS 1.2 % (0-2); EOSINOPHILS 2.6 % (0-7); HEMATOCRIT 45.7 % (36.0-48.0); HEMOGLOBIN 15.6 g/dL (12-16); LYMPHOCYTES 40.2 % (15-50); MCH 29.8 pg (26.0-34.0); MCHC 34.1 g/dL (31.0-37.0); MCV 87.5 fL (80.0-100.0); MEAN PLATELET VOLUME 8.1 fL (7.4-10.4); MONOCYTES 8.6 % (2-11); NEUTROPHILS 47.4 % (40-80); PLATELET COUNT 205 10x3/uL (130-400); RBC 5.22 10x6/uL (4.00-5.40); RDW 12.7 % (11.5-14.5); WBC 6.5 10x3/uL (4.8-10.8)
[2020-12-20 08:12] LABS: INR 1.01 (0.85-1.17); PROTIME 12.3 SECONDS (11.6-15.0)
[2020-12-20 08:14] LABS: ALBUMIN 3.8 g/dL (3.4-5.0); ALKALINE PHOSPHATASE 78 U/L (30-120); ALT (SGPT) 32 U/L (10-68); BILIRUBIN - TOTAL 0.63 mg/dL (0.2-1.3); CKMB 1.9 U/L (0.0-3.6); CREATINE KINASE 71 UL (21-215); PROTEIN - SERUM 7.1 g/dL (6.4-8.2)
[2020-12-20 08:15] LABS: TROPONIN-I < 0.017 ng/mL (0.000-0.060)
[2020-12-20 08:55] VITALS: BP 139/64
== END 2020-12-20 08:57 | disposition home or self-care (01) ==
LOC: D.ER 07:29
PROVIDERS: Family Medicine
DX: I47.1 Supraventricular tachycardia (principal); E11.9 Type 2 diabetes mellitus without complications; I10 Essential (primary) hypertension; Z79.84 Long term (current) use of oral hypoglycemic drugs